=== PATIENT | female | born 1945 | race Caucasian/White ===

== ENCOUNTER 2017-06-05 10:44 | Outpatient (CLI) | payer MEDICARE ==
[2017-06-05 12:54] LABS: Hemoglobin 12.5 g/dL (12.0-16.0); Mean Corpuscular HGB CONC 34.6 g/dL (32.0-36.0); Mean Corpuscular Volume 98.4 fl (81.0-99.0); Mean Platelet Volume 7.8 fL (7.4-10.4); Platelet Count 140 thou/uL (130-400); RBC Distribution Width 15.1 % (11.5-14.5); Red Blood Cell (RBC) Count 3.68 mill/uL (4.20-5.40); White Blood Cell (WBC) Count 3.5 thou/uL (4.8-10.8)
[2017-06-05 12:57] LABS: INR-International Normal Ratio 1.1
[2017-06-05 13:09] LABS: Anion Gap 12 mmol/L (10-20); BUN (Urea Nitrogen) 20 mg/dL (9.8-20.1); Calc. Creatinine Clearance 0 mL/min (70-130); Calcium 9.6 mg/dL (7.8-10.44); Carbon Dioxide 28 mmol/L (23-31); Chloride 105 mmol/L (98-107); Estimated GFR-MDRD 67; Glucose 84 mg/dL (80-115); Potassium 4.2 mmol/L (3.5-5.1); Sodium 141 mmol/L (136-145)
--- NOTE | 2017-06-05 13:49 | RAD ---
RADIOGRAPH CHEST 2 VIEWS: HISTORY: A 72-year-old female for preoperative evaluation. FINDINGS: The thoracic aorta is tortuous and ectatic. There is no evidence of air space density, pneumothorax, or pulmonary edema. There is no cardiomegaly or pleural effusion. IMPRESSION: 1) No acute cardiopulmonary findings. 2) Ectasia of thoracic aorta. salvador [] POS: KIRA
--- NOTE | 2017-06-06 19:09 | EKG ---
Test Reason : Blood Pressure : / mmHG Vent. Rate : 078 BPM Atrial Rate : 078 BPM P-R Int : 140 ms QRS Dur : 078 ms QT Int : 392 ms P-R-T Axes : 033 -10 031 degrees QTc Int : 446 ms Normal sinus rhythm Possible Anterior infarct , age undetermined No previous ECGs available Confirmed by RASHIDA PEDERSEN, DR. Dee ([id number]) on 06/06/2017 7:08:36 PM Referred By: GUERDA Confirmed By:DR. Luiz FIELD MD
== END 2017-06-05 10:45 | disposition home or self-care (01) ==
LOC: LABBT 10:44
PROVIDERS: ATTEND Dentist Oral and Maxillofacial Surgery
DX: Z01.818 Encounter for other preprocedural examination (principal); M27.2 Inflammatory conditions of jaws; I77.810 Thoracic aortic ectasia
CPT/HCPCS: 71046; 80048; 85027; 85610; 85652; 93005; 93010

== ENCOUNTER 2017-06-09 08:43 | Inpatient (IN) | payer MEDICARE ==
[2017-06-05 11:26] VITALS: BMI 27.1
[2017-06-09] MEDS ORDERED: Fentanyl 250 MCG/5 ML VIAL ONE (11:46)
[2017-06-09] MEDS ORDERED: Chlorhexidine Gluconate 15 ML UDCUP SSP ONE ×2 (11:49→12:45)
[2017-06-09] MEDS ORDERED: Lidocaine 1% w/Epinephrine 1:200K 30 ML VIAL ONE (11:49)
[2017-06-09] MEDS ORDERED: Hydrocortisone 1% Cream 30 GM TUBE ONE (11:49)
[2017-06-09] MEDS ORDERED: Midazolam HCl 2 mg/2 ml Vial ONE (12:16)
[2017-06-09] MEDS ORDERED: Scopolamine 1.5 mg/72 hour Patch ONE (12:16)
--- NOTE | 2017-06-09 14:33 | OP ---
DATE OF PROCEDURE: 06/09/2017 SURGEON: Arturo Mitchell D.D.S. PREOPERATIVE DIAGNOSIS: Left mandibular osteomyelitis. POSTOPERATIVE DIAGNOSIS: Left mandibular osteomyelitis. PROCEDURE PERFORMED: Surgical debridement and culture of left mandible. COMPLICATIONS: None. SPECIMENS: Cultures of necrotic bone as well as tissue were sent to pathology for Gram stain and culture, aerobic and anaerobic. ANESTHESIA: General endotracheal, nasal ray tube. DISPOSITION: The patient was stable, extubated, and transferred to the Postoperative Recovery Unit. BRIEF PATIENT HISTORY AND PROCEDURE IN DETAIL: This is a 72-year-old white female with a history of Sjogren syndrome and polymyositis with a history of a tooth extraction approximately 7-8 months ago at her general dentist's office. The patient had continued pain, swelling, and drainage. The dentist went back in for a curette of the socket in February with no resolution of her symptoms. She came to my office where examination was done and a CT scan was found to have ratty appearing bone on CT scan of the jaws. Prior to taking the patient to operating room Dr. Alvarez, Infectious Disease, was consulted. A PICC line was placed. She was taken to the operating room, prepped, and draped in sterile fashion. Oropharynx suctioned with Yankauer suction. A throat pack was placed utilizing a Ray-Saud sponge. Local anesthetic with 1% lidocaine 1:100,000 epinephrine and was given on left inferior alveolar nerve block as well as infiltration of the left mandibular vestibule. A Hockey stick incision over bone was made distal to the left mandibular second molar. This was carried forward medially to the second bicuspid tooth. A full thickness mucoperiosteal flap was elevated to the buccal of teeth 17 to 20 with exposure of the mandible all the way to the left angle and inferior border of the mandibular body. A large amount of necrotic bone was encountered as well as pus on initial incisoin. This bone was removed with curettes as well as a bone bur down to good bleeding bone. The inferior alveolar nerve was never visualized during the procedure. The area was thoroughly irrigated with Peridex and normal saline. Primary closure with interrupted 4-0 chromic gut was obtained. The patient tolerated the procedure well. Throat pack was removed at the termination of the procedure. [facility] MEDICAL CENTERDeepika
[2017-06-09] MEDS ORDERED: Propofol 200 MG/20 ML VIAL ONE (14:51)
[2017-06-09] MEDS ORDERED: Glycopyrrolate 0.2 MG/ML 5 ML SYRINGE ONE (14:51)
[2017-06-09] MEDS ORDERED: Ondansetron HCl/PF 4 MG/2 ML Vial ONE (14:51)
[2017-06-09] MEDS ORDERED: Dexamethasone 20 MG/5 ML VIAL ONE (14:51)
[2017-06-09] MEDS ORDERED: Ketorolac Tromethamine 30 MG/ML VIAL ONE (14:51)
[2017-06-09] MEDS ORDERED: Lidocaine 1% PF 5 ML VIAL ONE (14:51)
--- NOTE | 2017-06-09 14:59 | SPC ---
ULTRASOUND GUIDED LEFT UPPER EXTREMITY PICC PLACEMENT: DATE: 06/09/17. COMPARISON: None. HISTORY: Mandibular infection, access requested for IV antibiotics. FINDINGS: Informed consent obtained prior to the procedure. Left antecubital fossa is prepped and draped in no rmal sterile fashion. The skin overlying the basilic vein is anesthetized with 1% buffered Lidocaine . With direct sonographic guidance, vascular access is obtained via the left basilic vein and an 0.0 18 wire was advanced to the IVC, retracted to the cavoatrial junction. The needle was removed and pl aced with a peelaway sheath. Intravascular length is estimated at 43 cm and the PICC is cut accordin gly. The PICC is advanced over the wire. The wire and peelaway sheath are removed. The tip of the catheter overlies the cavoatrial junction. Both ports flush well and the catheter is ready for use. EXPOSURE DATA: 0.5 minutes of fluoroscopic time, 1756 mGy*^cm2. IMPRESSION: Successful placement of left upper extremity PICC with sonographic guidance. POS: KIRA
[2017-06-09] MEDS ORDERED: Promethazine HCl 25 MG/ML VIAL SLOW IVP PRN (16:02)
[2017-06-09] MEDS ORDERED: Ondansetron HCl/PF 4 MG/2 ML Vial IVP PRN (16:02)
[2017-06-09] MEDS ORDERED: Promethazine HCl 25 MG/ML VIAL IM PRN (16:02)
[2017-06-09] MEDS ORDERED: Heparin 1,000 UNITS/ML VIAL ONE (18:04)
[2017-06-09] MEDS ORDERED: Ondansetron HCl/PF 4 MG/2 ML Vial SLOW IVP PRN (18:22)
[2017-06-09] MEDS ORDERED: Morphine 4 MG/ML VIAL SLOW IVP PRN (18:23)
[2017-06-09] MEDS: Acetaminophen 500 MG TAB PO PRN (18:51)
[2017-06-09] MEDS: D5 0.9% NS w/ 20 mEq KCl 1,000 ML IV SCH (18:52)
[2017-06-09] MEDS: MEROPENEM 1 GM/50 ML 1 GM in Premix Bag 1 BAG IVPB SCH (18:52)
[2017-06-09] MEDS: Chlorhexidine Gluconate 15 ML UDCUP SSP SCH (20:26)
[2017-06-09] MEDS ORDERED: Acetaminophen 500 MG TAB PO SCH (22:00)
[2017-06-09] MEDS ORDERED: Meropenem 1 GM in Sodium Chloride 0.9% 100 ML IVPB SCH (22:00)
[2017-06-09] MEDS: Ibuprofen 600 MG TAB PO SCH (23:40)
[2017-06-10] MEDS: MEROPENEM 1 GM/50 ML 1 GM in Premix Bag 1 BAG IVPB SCH ×2 (02:17→09:48)
[2017-06-10] MEDS: Ibuprofen 600 MG TAB PO SCH ×2 (05:28→15:31)
[2017-06-10] MEDS: Chlorhexidine Gluconate 15 ML UDCUP SSP SCH ×2 (09:47→15:12)
[2017-06-10] MEDS: D5 0.9% NS w/ 20 mEq KCl 1,000 ML IV SCH (10:01)
[2017-06-10 12:02] VITALS: BP 121/76; TEMP 98
[2017-06-10 14:29] LABS: ALT (SGPT) 27 U/L (8-55); AST (SGOT) 30 U/L (5-34); Albumin 3.7 g/dL (3.4-4.8); Alkaline Phosphatase 31 U/L (40-150); Anion Gap 9 mmol/L (10-20); BUN (Urea Nitrogen) 18 mg/dL (9.8-20.1); Bilirubin, Total 0.6 mg/dL (0.2-1.2); Calc. Creatinine Clearance 73 mL/min (70-130); Calcium 9.1 mg/dL (7.8-10.44); Carbon Dioxide 28 mmol/L (23-31); Chloride 101 mmol/L (98-107); Estimated GFR-MDRD 70; Globulin 2.6 g/dL (2.4-3.5); Glucose 76 mg/dL (80-115); Protein, Total 6.3 g/dL (6.0-8.3); Sodium 134 mmol/L (136-145)
[2017-06-10 14:50] LABS: Eosinophils 2 % (0-10); Hemoglobin 11.5 g/dL (12.0-16.0); Lymphocytes 39 % (21-51); MDiff Complete? YES; Mean Corpuscular HGB CONC 34.5 g/dL (32.0-36.0); Mean Corpuscular Hemoglobin 32.9 pg (27.0-31.0); Mean Corpuscular Volume 95.4 fl (81.0-99.0); Mean Platelet Volume 7.6 fL (7.4-10.4); Monocytes 4 % (0-10); Neutrophil 55 % (42-75); PLT Morphology Comment Appears Adequate; Platelet Count 121 thou/uL (130-400); RBC Distribution Width 14.5 % (11.5-14.5); Red Blood Cell (RBC) Count 3.51 mill/uL (4.20-5.40); White Blood Cell (WBC) Count 4.6 thou/uL (4.8-10.8)
[2017-06-10] MEDS: Acetaminophen 500 MG TAB PO PRN (15:13)
== END 2017-06-10 16:30 | disposition home health service (06) | DRG 129 ==
LOC: SDC 08:43 → SJJU 15:29 → OBSVTOIN 06-10 10:02
PROVIDERS: ADMIT Dentist Oral and Maxillofacial Surgery; ATTEND Dentist Oral and Maxillofacial Surgery
PROC: 0NBV0ZZ Excision of Left Mandible, Open Approach (ICD-10-PCS; principal; 2017-06-10)
PROC: 02HV33Z Insertion of Infusion Device into Superior Vena Cava, Percutaneous Approach (ICD-10-PCS; 2017-06-10)
PROC: B548ZZA Ultrasonography of Superior Vena Cava, Guidance (ICD-10-PCS; 2017-06-10)
DX: M27.2 Inflammatory conditions of jaws (principal); M86.9 Osteomyelitis, unspecified; M33.20 Polymyositis, organ involvement unspecified; M35.00 Sjogren syndrome, unspecified; Z96.659 Presence of unspecified artificial knee joint; I10 Essential (primary) hypertension; E78.5 Hyperlipidemia, unspecified; E03.9 Hypothyroidism, unspecified; G25.81 Restless legs syndrome; F32.9 Major depressive disorder, single episode, unspecified
CPT/HCPCS: 36569; 80053; 85007; 85027; 87070; 87076; 87077; 87205; A4216; C1751; J1100; J1644; J1885; J2001; J2185; J2250; J2405; J2704; J3010